=== PATIENT | male | born 1950 | race Caucasian/White ===

== ENCOUNTER 2017-03-29 14:58 | Inpatient (IN) | payer OTHER ==
[~2017-03-29] VITALS: Ht 180.3 cm; Wt 90.5 kg
[2017-03-29 14:59] VITALS: BP 153/97; PULSE 82; RESP 16; TEMP 98.4; O2SAT 97
[2017-03-29 15:27] VITALS: BP 142/94; PULSE 77; RESP 16; O2SAT 96
--- NOTE | 2017-03-29 15:48 | PD ---
HPI Chief Complaint: Abnormal Results Time Seen by Provider: 15:25 Travel History International Travel<30 days: No Contact w/Intl Traveler<30days: No Traveled to known affect area: No History of Present Illness HPI 66-year-old male presents emergency department at the request of his physician at [facility] for evaluation of an elevated d-dimer. Patient states that 3 days ago he began having right-sided chest pain increased with deep breaths and exertion. States that he was sitting at the time of the onset. Pain does not radiate. States the pain is moderate when present. States that he occasionally smokes cigars and he has a history of high blood pressure and high cholesterol. Family history significant for mother- history of coronary artery disease and father had a CVA. Patient says that he was diagnosed with pneumonia 6 weeks ago and had the flu 3 weeks ago. States this is fully resolved. Patient denies cardiac or pulmonary history. Denies history of blood clots in the lungs or legs. Patient does not take aspirin daily. PFSH Past Medical History High Cholesterol: Yes Hypertension: Yes Tetanus Vaccination: < 5 Years Influenza Vaccination: Yes Past Surgical History Abdominal Surgery: Yes (left inguinal hernia repair) Social History Alcohol Use: Yes (one drink/day) Tobacco Use: Yes (Cigar use) Substance Use: No Allergies-Medications (Allergen,Severity, Reaction): Coded Allergies: No Known Allergies (Unverified , 03/29/17) Review of Systems Except as stated in HPI: all other systems reviewed are Neg Physical Exam Narrative GENERAL: Well-developed well-nourished in no apparent distress, resting comfortably but SKIN: Focused skin assessment warm/dry. HEAD: Atraumatic. Normocephalic. EYES: Pupils equal and round. No scleral icterus. No injection or drainage. ENT: No nasal bleeding or discharge. Mucous membranes pink and moist. NECK: Trachea midline. No JVD. CARDIOVASCULAR: Regular rate and rhythm. No murmur appreciated. RESPIRATORY: No accessory muscle use. Clear to auscultation. Breath sounds equal bilaterally. GASTROINTESTINAL: Abdomen soft, non-tender, nondistended. No CVA tenderness MUSCULOSKELETAL: No obvious deformities. No clubbing. No cyanosis. No edema. Homans sign negative bilaterally NEUROLOGICAL: Awake and alert. No obvious cranial nerve deficits. Motor grossly within normal limits. Normal speech. PSYCHIATRIC: Appropriate mood and affect; insight and judgment normal. Data Data Last Documented VS Vital Signs Date Time Temp Pulse Resp B/P (MAP) Pulse Ox O2 Delivery O2 Flow Rate FiO2 03/29/17 15:27 77 16 142/94 (110) 96 Room Air 03/29/17 14:59 98.4 Orders Orders Troponin I (03/29/17 15:39) Ct Pulmonary Angiogram (03/29/17 ) Iohexol 350 Inj (Omnipaque 350 Inj) (03/29/17 16:50) Act Partial Throm Time (Ptt) (03/29/17 17:12) Prothrombin Time / Inr (Pt) (03/29/17 17:12) Heparin-D5w 25,000 U/250 Ml (Heparin-D5w (03/29/17 17:15) Act Partial Throm Time (Ptt) (03/29/17 17:14) Cbc No Diff, Includes Plts (03/29/17 17:14) Cbc No Diff, Includes Plts (04/01/17 06:00) Act Partial Throm Time (Ptt) (03/30/17 00:14) Occult Blood (Hemoccult) Stool (03/29/17 17:14) Electrocardiogram (03/29/17 ) Admit To Inpatient (03/29/17 17:44) Vital Signs (Adult) Q4H (03/29/17 17:44) Activity Bed Rest With Brp (03/29/17 17:44) Full Stack Software Engineer / Telemetry .CONTINUOUS (03/29/17 17:44) Diet Heart Healthy (03/29/17 Dinner) Basic Metabolic Panel (Bmp) (03/30/17 06:00) Complete Blood Count With Diff (03/30/17 06:00) Admit Order (Ed Use Only) (03/29/17 17:45) Labs Laboratory Tests Test 03/29/17 15:42 03/29/17 17:00 Troponin I LESS THAN 0.02 NG/ML White Blood Count 9.4 TH/MM3 Red Blood Count 4.62 MIL/MM3 Hemoglobin 14.5 GM/DL Hematocrit 41.0 % Mean Corpuscular Volume 88.7 FL Mean Corpuscular Hemoglobin 31.5 PG Mean Corpuscular Hemoglobin Concent 35.5 % Red Cell Distribution Width 13.9 % Platelet Count 370 TH/MM3 Mean Platelet Volume 8.9 FL MDM Medical Decision Making Medical Screen Exam Complete: Yes Emergency Medical Condition: Yes Differential Diagnosis Pneumonia, pulmonary embolism, pleural effusion Narrative Course 66-year-old male presents emergency department at the request of his physician at [facility] for evaluation of an elevated d-dimer. Patient states that 3 days ago he began having right-sided chest pain increased with deep breaths and exertion. States that he was sitting at the time of the onset. Pain does not radiate. States the pain is moderate when present. States that he occasionally smokes cigars and he has a history of high blood pressure and high cholesterol. Family history significant for mother- history of coronary artery disease and father had a CVA. Patient says that he was diagnosed with pneumonia 6 weeks ago and had the flu 3 weeks ago. States this is fully resolved. Patient denies cardiac or pulmonary history. Denies history of blood clots in the lungs or legs. No recent surgeries. Patient does not take aspirin daily. 1545 I talked with the patient about possible diagnoses. Patient is refusing EKG and other blood work at this time. I explained in depth the purpose of the EKG and he was concerned about 'paying for tests that were not necessary'. Advised the risk versus benefits of this. I was able to convince him to allow me to obtain a troponin and CT pulmonary angiogram. Advised that the delay in the EKG could result in other injury to his heart and even . Patient states understanding and prefers to wait. Says that if he has a "normal" CTA that he would agree to an EKG. Note that he did bring in lab work from the [facility] facility and this is listed in his chart. The chest x-ray states "Normal chest. There is an epicardial fat pad along the left heart border. There is of no significance. No pleural fluid identified on either right or left. No evidence for pneumonia. No abnormality on the right identified to explain right pleuritic chest pain." D-dimer 1.49. CBC unremarkable. BUN/creatinine 11/0.98, mild hyponatremia at 133. CT pulmonary angiogram, Troponin I ordered. Troponin negative. CT pulmonary angiogram demonstrates multifocal acute appearing PE bilaterally within the segmental pulmonary arteries. There is associated multifocal presumed atelectasis bilaterally related to the PE. Findings indicative of old granulomatous infection. After further discussion with the patient and the , they state that he has had a recent travel from [place] in January and a long car ride from [place] in February. This may be the etiology of his Pulmonary Emboli. Patient and agreed to further studies to include EKG and coags. EKG shows Sinus rhythm at 63BPM without STEMI changes. S1Q3T3 pattern present on EKG. Patient will be admitted for bilateral PE. Heparin drip initiated. Coags ordered. Patient remained hemodynamically stable in the emergency department today. Patient continued to have no complaints except for pain with deep inspiration. Diagnosis Primary Impression: Pulmonary embolism Qualified Codes: I26.99 - Other pulmonary embolism without acute cor pulmonale Admitting Information Admitting Physician Requests: Admit Condition: Stable Maria Eugenia Clemons Mar 29, 2017 15:48
[2017-03-29] MEDS ORDERED: IOHEXOL 350 MG/ML 10 ML VIAL (for RAD DIAG) IVCONTRAST ONE (16:50)
--- NOTE | 2017-03-29 17:02 | RADRPT ---
EXAM DATE/TIME: 03/29/2017 16:46 [facility] COMPARISON: No previous studies available for comparison. INDICATIONS : Right sided chest pain for three days. IV CONTRAST: 70 cc Omnipaque 350 (iohexol) IV RADIATION DOSE: 10.87 CTDIvol (mGy) MEDICAL HISTORY : Hypertension. SURGICAL HISTORY : Inguinal hernia repair. ENCOUNTER: Initial ACUITY: 3 days PAIN SCALE: 6/10 LOCATION: Right chest TECHNIQUE: Volumetric scanning of the chest was performed using a pulmonary embolism protocol MIP images were re constructed. Using automated exposure control and adjustment of the mA and/or kV according to patien t size, radiation dose was kept as low as reasonably achievable to obtain optimal diagnostic quality images. DICOM format image data is available electronically for review and comparison. Follow-up recommendations for detected pulmonary nodules are based at a minimum on nodule size and pa tient risk factors according to Fleischner Society Guidelines. FINDINGS: PULMONARY ARTERIES: There are abnormal filling defects/pulmonary thromboemboli within the right upper lobe, right middle lobe, right lower lobe, and left lower lobe segmental pulmonary arteries. LUNGS: There is multifocal area of atelectasis. No pneumothorax is present. There is a calcified granuloma i n the left lower lobe. PLEURAE: There is no pleural thickening or pleural effusion. MEDIASTINUM: Heart and great vessels demonstrate no acute finding. There is slight flattening of the interventricu lar septum. Coronary calcification is present. There is no lymphadenopathy. There are nonenlarged tomas cified left hilar lymph nodes. MUSCULOSKELETAL: No acute abnormality. There are degenerative changes of the thoracic spine. MISCELLANEOUS: The visualized upper abdominal organs demonstrate no acute abnormality. CONCLUSION: 1. Multifocal acute-appearing PE bilaterally within the segmental pulmonary arteries. There is associ ated multifocal presumed atelectasis bilaterally likely related to the PE. 2. Findings indicative of old granulomatous infection. Ze Loaiza MD on March 29, 2017 at 16:56 Board Certified Radiologist. This report was verified electronically.
--- NOTE | 2017-03-29 17:25 | PD ---
Data Data Last Documented VS Vital Signs Date Time Temp Pulse Resp B/P (MAP) Pulse Ox O2 Delivery O2 Flow Rate FiO2 03/29/17 15:27 77 16 142/94 (110) 96 Room Air 03/29/17 14:59 98.4 Orders Orders Troponin I (03/29/17 15:39) Ct Pulmonary Angiogram (03/29/17 ) Iohexol 350 Inj (Omnipaque 350 Inj) (03/29/17 16:50) Act Partial Throm Time (Ptt) (03/29/17 17:12) Prothrombin Time / Inr (Pt) (03/29/17 17:12) Heparin-D5w 25,000 U/250 Ml (Heparin-D5w (03/29/17 17:15) Act Partial Throm Time (Ptt) (03/29/17 17:14) Cbc No Diff, Includes Plts (03/29/17 17:14) Cbc No Diff, Includes Plts (04/01/17 06:00) Act Partial Throm Time (Ptt) (03/30/17 00:14) Occult Blood (Hemoccult) Stool (03/29/17 17:14) Labs Laboratory Tests Test 03/29/17 15:42 Troponin I LESS THAN 0.02 NG/ML [facility] Medical Record Reviewed: Yes Supervised Visit with BEHZAD: Yes Narrative Course CT PE: bilateral PEs Admission for IV heparin Pt hemodynamically stable at 524pm, speaking full sentences Unclear risk factors at time of admission Diagnosis Primary Impression: Pulmonary embolism Qualified Codes: I26.99 - Other pulmonary embolism without acute cor pulmonale Admitting Information Admitting Physician Requests: Admit Eugene Carrillo MD Mar 29, 2017 17:25
[2017-03-29 17:49] LABS: HEMOGLOBIN 14.5 GM/DL (13.0-17.0); MEAN CELL VOLUME 88.7 FL (80.0-100.0); MEAN CORPUSCULAR HEMOGLOBIN 31.5 PG (27.0-34.0); MEAN CORPUSCULAR HGB CONC 35.5 % (32.0-36.0); MEAN PLATELET VOLUME 8.9 FL (7.0-11.0); PLATELET COUNT 370 TH/MM3 (150-450); RED BLOOD COUNT 4.62 MIL/MM3 (4.50-5.90); RED CELL DISTRIBUTION WIDTH 13.9 % (11.6-17.2); WHITE BLOOD COUNT 9.4 TH/MM3 (4.0-11.0)
[2017-03-29 18:07] LABS: INTERNATIONAL NORMALIZED RATIO 0.9 RATIO; PROTHROMBIN TIME - PATIENT 9.5 SEC (9.8-11.6)
[2017-03-29] MEDS: HEPARIN-D5W 25,000 U/250 ML 250 ML IV PRN (18:31)
[2017-03-29 20:00] VITALS: BP 156/92; PULSE 58; RESP 16; TEMP 96.6; O2SAT 100
[2017-03-30] VITALS: BP 138/82; PULSE 58; RESP 16; TEMP 97.4; O2SAT 95
--- NOTE | 2017-03-30 00:39 | HHI.HP ---
[facility] Ad[facility] Diagnosis bilateral PE Diagnoses: Chief Complaint: Right chest pain Travel History International Travel<30 Days: No Contact w/Intl Traveler <30 Da: No Traveled to Known Affected Are: No History of Present Illness 66-year-old male with a history of hyperlipidemia and hypertension was sent to the ED for evaluation of an elevated d-dimer. Patient states for the last few days he's been having stabbing right-sided chest pain, 5/10, with no radiation worse with deep breaths. He was seen in the urgent care and lab work was completed and showed an elevated d-dimer they sent him to the hospital for a CT scan. He states he only really noticed the pain with exertion. He denies any fever or chills. He is originally from [place] and in January he was on a long plane ride, and in February he drove to [place] from [place]. He states 2 weeks ago he also did have the flu and he was laying in bed for about 3 days. He denies any pain or swelling in his lower extremities Review of Systems Except as stated in HPI: all other systems reviewed are Neg Past Family Social History Past Medical History Her pretension Hyperlipidemia Past Surgical History Right great toe surgery Inguinal hernia repair Reported Medications Allergies: Coded Allergies: No Known Allergies (Unverified , 03/29/17) Active Ordered Medications Current Medications Medications (Trade) Dose Ordered Sig/Francois Route Start Time Stop Time Status Last Admin Heparin Sodium/ Dextrose 250 ml @ 16 mls/hr TITRATE PRN IV 03/29/17 17:15 03/29/17 18:31 Family History Mom and dad: Hypertension Social History Tobacco use: A cigar occasionally Alcohol use: A drink with dinner Illicit drug use: Denies Physical Exam Vital Signs Vital Signs Date Time Temp Pulse Resp B/P (MAP) Pulse Ox O2 Delivery O2 Flow Rate FiO2 03/29/17 18:54 03/29/17 15:27 77 16 142/94 (110) 96 Room Air 03/29/17 15:19 18 99 Room Air 03/29/17 14:59 98.4 82 16 153/97 (115) 97 Physical Exam GENERAL: This is a well-nourished, well-developed patient, in no apparent distress. SKIN: No rashes, ecchymoses or lesions. Cool and dry. HEAD: Atraumatic. Normocephalic. EYES: Pupils equal round and reactive. ENT: Nose without bleeding, purulent drainage or septal hematoma. Airway patent. NECK: Trachea midline. No JVD or lymphadenopathy. Supple, nontender, no meningeal signs. CARDIOVASCULAR: Regular rate and rhythm without murmurs, gallops, or rubs. RESPIRATORY: Clear to auscultation. Breath sounds equal bilaterally. No wheezes , rales, or rhonchi. GASTROINTESTINAL: Abdomen soft, non-tender, nondistended. MUSCULOSKELETAL: Extremities without clubbing, cyanosis, or edema. No joint tenderness, effusion, or edema noted. No calf tenderness. NEUROLOGICAL: Awake and alert. Motor and sensory grossly within normal limits. Normal speech. Laboratory Laboratory Tests Test 03/29/17 15:42 03/29/17 17:00 Troponin I LESS THAN 0.02 White Blood Count 9.4 Red Blood Count 4.62 Hemoglobin 14.5 Hematocrit 41.0 Mean Corpuscular Volume 88.7 Mean Corpuscular Hemoglobin 31.5 Mean Corpuscular Hemoglobin Concent 35.5 Red Cell Distribution Width 13.9 Platelet Count 370 Mean Platelet Volume 8.9 Prothrombin Time 9.5 Prothromb Time International Ratio 0.9 Activated Partial Thromboplast Time 19.6 Result Diagram: 03/29/17 1700 Caprini VTE Risk Assessment Caprini VTE Risk Assessment: Mod/High Risk (score >= 2) Caprini Risk Assessment Model Point Value = 1 Point Value = 2 Point Value = 3 Point Value = 5 Age 41-60 Minor surgery BMI > 25 kg/m2 Swollen legs Varicose veins or History of unexplained or recurrent spontaneous Oral contraceptives or hormone replacement Sepsis (< 1 month) Serious lung disease, including pneumonia (< 1 month) Abnormal pulmonary function Acute myocardial infarction Congestive heart failure (< 1 month) History of inflammatory bowel disease Medical patient at bed rest Age 61-74 Arthroscopic surgery Major open surgery (> 45 min) Laparoscopic surgery (> 45 min) Malignancy Confined to bed (> 72 hours) Immobilizing plaster cast Central venous access Age >= 75 History of VTE Family history of VTE Factor V Leiden Prothrombin [id number] Lupus anticoagulant Anticardiolipin antibodies Elevated serum homocysteine Heparin-induced thrombocytopenia Other congenital or acquired thrombophilia Stroke (< 1 month) Elective arthroplasty Hip, pelvis, or leg fracture Acute spinal cord injury (< 1 month) Prophylaxis Regimen Total Risk Factor Score Risk Level Prophylaxis Regimen 0-1 Low Early ambulation 2 Moderate Order ONE of the following: *Sequential Compression Device (SCD) *Heparin 5000 units SQ BID 3-4 Higher Order ONE of the following medications: *Heparin 5000 units SQ TID *Enoxaparin/Lovenox 40 mg SQ daily (WT < 150 kg, CrCl > 30 mL/min) *Enoxaparin/Lovenox 30 mg SQ daily (WT < 150 kg, CrCl > 10-29 mL/min) *Enoxaparin/Lovenox 30 mg SQ BID (WT < 150 kg, CrCl > 30 mL/min) AND/OR *Sequential Compression Device (SCD) 5 or more Highest Order ONE of the following medications: *Heparin 5000 units SQ TID (Preferred with Epidurals) *Enoxaparin/Lovenox 40 mg SQ daily (WT < 150 kg, CrCl > 30 mL/min) *Enoxaparin/Lovenox 30 mg SQ daily (WT < 150 kg, CrCl > 10-29 mL/min) *Enoxaparin/Lovenox 30 mg SQ BID (WT < 150 kg, CrCl > 30 mL/min) AND *Sequential Compression Device (SCD) Assessment and Plan Problem List: (1) Pulmonary embolism ICD Code: I26.99 - Other pulmonary embolism without acute cor pulmonale Status: Acute (2) HTN (hypertension) ICD Code: I10 - Essential (primary) hypertension Assessment and Plan 66-year-old male with a history of hyperlipidemia and hypertension was sent to the ED for evaluation of an elevated d-dimer. Pulmonary embolism CTA reviewed and shows multifocal acute-appearing PE bilaterally within the segmental pulmonary arteries. There is associated multifocal presumed atelectasis bilaterally likely related to the PE. -Heparin IV -Monitor telemetry Hypertension, chronic -Resumed home medications, monitor vitals DVT prophylaxis: Heparin Discussed Condition With Patient Physician Certification 2 Midnight Certification Type: Admission for Inpatient Services Order for Inpatient Services The services are ordered in accordance with Medicare regulations or non- Medicare payer requirements, as applicable. In the case of services not specified as inpatient-only, they are appropriately provided as inpatient services in accordance with the 2-midnight benchmark. Estimated LOS (days): 2 days is the estimated time the patient will need to remain in the hospital, assuming treatment plan goals are met and no additional complications. Post-Hospital Plan: Home Problem Qualifiers (1) Pulmonary embolism: Qualified Codes: I26.99 - Other pulmonary embolism without acute cor pulmonale Annemarie Gan Mar 30, 2017 00:39
[2017-03-30] MEDS ORDERED: OMEGCAP PO (02:28)
[2017-03-30] MEDS ORDERED: LISI30TA4 PO (02:28)
[2017-03-30 04:00] VITALS: BP 138/87; PULSE 56; RESP 15; TEMP 96.3; O2SAT 95
[2017-03-30 08:00] VITALS: BP 136/91; PULSE 98; RESP 16; TEMP 97; O2SAT 96
[2017-03-30 08:45] LABS: AUTOMATED NEUTROPHIL # 4.7 TH/MM3 (1.8-7.7); BASOPHIL # 0.1 TH/MM3 (0-0.2); BASOPHIL % 0.7 % (0.0-2.0); EOSINOPHIL # 0.3 TH/MM3 (0-0.4); EOSINOPHIL % 3.5 % (0.0-4.0); HEMATOCRIT 40.5 % (39.0-51.0); HEMOGLOBIN 14.2 GM/DL (13.0-17.0); LYMPH % 25.2 % (9.0-44.0); MEAN CELL VOLUME 88.8 FL (80.0-100.0); MEAN CORPUSCULAR HEMOGLOBIN 31.1 PG (27.0-34.0); MEAN PLATELET VOLUME 8.1 FL (7.0-11.0); MONO % 10.1 % (0.0-8.0); MONOCYTE # 0.8 TH/MM3 (0-0.9); NEUT % 60.5 % (16.0-70.0); PLATELET COUNT 298 TH/MM3 (150-450); RED BLOOD COUNT 4.56 MIL/MM3 (4.50-5.90); RED CELL DISTRIBUTION WIDTH 13.3 % (11.6-17.2); WHITE BLOOD COUNT 7.8 TH/MM3 (4.0-11.0)
[2017-03-30 08:56] LABS: BICARBONATE 24.7 MEQ/L (21.0-32.0); CALCIUM 8.9 MG/DL (8.5-10.1); CREATININE 0.97 MG/DL (0.60-1.30)
[2017-03-30] MEDS: HEPARIN-D5W 25,000 U/250 ML 250 ML IV PRN (10:18)
[2017-03-30 12:00] VITALS: BP 134/85; PULSE 58; RESP 16; TEMP 97; O2SAT 95
--- NOTE | 2017-03-30 12:31 | HHI.PR ---
Subjective Remarks Patient seen and examined this morning. Temperature 97.0, pulse 98, respiratory rate 16, blood pressure 136/91, pulse ox 96 on 2 L nasal cannula. He reports having some chest discomfort mainly with activity and deep breaths. Denies any nausea vomiting. Reports only feeling mildly short of breath. After discussion he wishes to go on Xarelto for his long-term anticoagulation. Awaiting case management approval for this medication Objective Vitals Vital Signs Date Time Temp Pulse Resp B/P (MAP) Pulse Ox O2 Delivery O2 Flow Rate FiO2 03/30/17 08:00 97.0 98 16 136/91 (106) 96 03/30/17 04:00 96.3 56 15 138/87 (104) 95 03/30/17 00:00 97.4 58 16 138/82 (100) 95 03/29/17 20:00 96.6 58 16 156/92 (113) 100 03/29/17 18:54 03/29/17 15:27 77 16 142/94 (110) 96 Room Air 03/29/17 15:19 18 99 Room Air 03/29/17 14:59 98.4 82 16 153/97 (115) 97 I/O 03/29/17 03/29/17 03/29/17 03/30/17 03/30/17 03/30/17 07:00 15:00 23:00 07:00 15:00 23:00 Intake Total 300 ml Balance 300 ml Intake Oral 300 ml # Voids 1 1 Result Diagram: 03/30/17 0730 03/30/17 [address] Angiography 03/29/17 0000 Signed Impressions: Service Date/Time: Wednesday, March 29, 2017 16:46 - CONCLUSION: 1. Multifocal acute-appearing PE bilaterally within the segmental pulmonary arteries. There is associated multifocal presumed atelectasis bilaterally likely related to the PE. 2. Findings indicative of old granulomatous infection. Ze Loaiza MD Objective Remarks GEN: Well-developed, well-nourished patient. No acute distress. CV: Regular rate and rhythm without obvious murmurs LUNGS: Clear to auscultation bilaterally. Normal respiratory effort. No wheezes , rales, rhonchi. GI: Soft, nontender, nondistended. No palpable masses. Bowel sounds WNL. EXT: No edema. NEURO/PSYCH: Afocal. Awake, alert, and oriented x3. Appropriate insight and judgment. Medications and IVs Current Medications Medications (Trade) Dose Ordered Sig/Francois Route Start Time Stop Time Status Last Admin Heparin Sodium/ Dextrose 250 ml @ 16 mls/hr TITRATE PRN IV 03/29/17 17:15 03/30/17 10:18 A/P Problem List: (1) Pulmonary embolism ICD Code: I26.99 - Other pulmonary embolism without acute cor pulmonale Status: Acute (2) HTN (hypertension) ICD Code: I10 - Essential (primary) hypertension Assessment and Plan 66-year-old male with a history of hyperlipidemia and hypertension was sent to the ED for evaluation of an elevated d-dimer, found to have a pulmonary embolism on CT. Pulmonary embolism CTA reviewed and shows multifocal acute-appearing PE bilaterally within the segmental pulmonary arteries. There is associated multifocal presumed atelectasis bilaterally likely related to the PE. -Heparin IV -Discuss long-term anticoagulation with the patient. Current recommendations is that he be on 3 months of anticoagulation. This is a provoked due to traveling PE and it is his first 1 ever. -Discussed his options for long-term anticoagulation, discussed warfarin versus Xarelto patient prefers Xarelto. Discussed this option with case management they will work with his insurance to confirm if it will be covered. Start Xarelto tomorrow if covered -Walk test ordered for tomorrow -Monitor telemetry Hypertension, chronic -Resumed home medications, lisinopril, monitor vitals DVT prophylaxis: Heparin Discharge Planning Continuing treatment for PE and plans for long-term anticoagulant Problem Qualifiers (1) Pulmonary embolism: Qualified Codes: I26.99 - Other pulmonary embolism without acute cor pulmonale Fred Alfaro MD, R3 Mar 30, 2017 12:31
--- NOTE | 2017-03-30 14:47 | EKG ---
Date Performed: 03/29/2017 Time Performed: 17:46:13 PTAGE: 66 years EKG: Sinus rhythm WITH FIRST DEGREE AV BLOCK Late R-wave transition ABNORMAL ECG NO PREVIOUS TRACING DOCTOR: Carlin Luz Interpretating Date/Time 03/30/2017 14:45:17
[2017-03-30 20:00] VITALS: BP 134/83; PULSE 68; RESP 16; TEMP 98; O2SAT 95
[2017-03-31] VITALS: BP 131/87; PULSE 57; RESP 16; TEMP 97.4; O2SAT 94
[2017-03-31] MEDS: HEPARIN-D5W 25,000 U/250 ML 250 ML IV PRN (03:39)
[2017-03-31 03:50] LABS: BICARBONATE 26.3 MEQ/L (21.0-32.0); CALCIUM 8.8 MG/DL (8.5-10.1); CREATININE 0.94 MG/DL (0.60-1.30)
[2017-03-31] MEDS ORDERED: LISINOPRIL 10 MG TAB PO SCH (09:00)
[2017-03-31 12:00] VITALS: BP 142/88; PULSE 70; RESP 18; TEMP 97.2; O2SAT 95
[2017-03-31] MEDS ORDERED: RIVAROXABAN 15 MG TAB PO STA (13:52)
--- NOTE | 2017-03-31 14:20 | HHI.PR ---
Subjective Remarks 66-year-old male with a history of hyperlipidemia and hypertension was sent to the ED for evaluation of an elevated d-dimer. Patient states for the last few days he's been having stabbing right-sided chest pain, 5/10, with no radiation worse with deep breaths. He was seen in the urgent care and lab work was completed and showed an elevated d-dimer they sent him to the hospital for a CT scan. He states he only really noticed the pain with exertion. He denies any fever or chills. He is originally from [place] and in January he was on a long plane ride, and in February he drove to [place] from [place]. He states 2 weeks ago he also did have the flu and he was laying in bed for about 3 days. He denies any pain or swelling in his lower extremities 2-18 Patient seen and examined this morning. Temperature 97.0, pulse 98, respiratory rate 16, blood pressure 136/91, pulse ox 96 on 2 L nasal cannula. He reports having some chest discomfort mainly with activity and deep breaths. Denies any nausea vomiting. Reports only feeling mildly short of breath. After discussion he wishes to go on Xarelto for his long-term anticoagulation. Awaiting case management approval for this medication 2- passed walk test dc to home on xarelto 15mg po bid for 21 days then 20mg po daily from then on WANTS TO GO HOME DC TO HOME TODAY XARELTO CARD GIVEN Objective Vitals Vital Signs Date Time Temp Pulse Resp B/P (MAP) Pulse Ox O2 Delivery O2 Flow Rate FiO2 03/31/17 00:00 97.4 57 16 131/87 (102) 94 03/30/17 20:00 98.0 68 16 134/83 (100) 95 I/O 03/30/17 03/30/17 03/30/17 03/31/17 03/31/17 03/31/17 07:00 15:00 23:00 07:00 15:00 23:00 Intake Total 600 ml 1200 ml 300 ml Balance 600 ml 1200 ml 300 ml Intake Oral 600 ml 1200 ml 300 ml # Voids 1 3 2 1 Result Diagram: 03/30/17 0730 03/31/17 0308 Other Results Laboratory Tests Test 03/29/17 15:42 03/29/17 17:00 03/30/17 01:35 03/30/17 07:30 Troponin I LESS THAN 0.02 NG/ML White Blood Count 9.4 TH/MM3 7.8 TH/MM3 Red Blood Count 4.62 MIL/MM3 4.56 MIL/MM3 Hemoglobin 14.5 GM/DL 14.2 GM/DL Hematocrit 41.0 % 40.5 % Mean Corpuscular Volume 88.7 FL 88.8 FL Mean Corpuscular Hemoglobin 31.5 PG 31.1 PG Mean Corpuscular Hemoglobin Concent 35.5 % 35.0 % Red Cell Distribution Width 13.9 % 13.3 % Platelet Count 370 TH/MM3 298 TH/MM3 Mean Platelet Volume 8.9 FL 8.1 FL Prothrombin Time 9.5 SEC Prothromb Time International Ratio 0.9 RATIO Activated Partial Thromboplast Time 19.6 SEC 60.6 SEC 75.6 SEC Neutrophils (%) (Auto) 60.5 % Lymphocytes (%) (Auto) 25.2 % Monocytes (%) (Auto) 10.1 % Eosinophils (%) (Auto) 3.5 % Basophils (%) (Auto) 0.7 % Neutrophils # (Auto) 4.7 TH/MM3 Lymphocytes # (Auto) 2.0 TH/MM3 Monocytes # (Auto) 0.8 TH/MM3 Eosinophils # (Auto) 0.3 TH/MM3 Basophils # (Auto) 0.1 TH/MM3 CBC Comment DIFF FINAL Differential Comment Blood Urea Nitrogen 12 MG/DL Creatinine 0.97 MG/DL Random Glucose 84 MG/DL Calcium Level 8.9 MG/DL Sodium Level 142 MEQ/L Potassium Level 3.8 MEQ/L Chloride Level 109 MEQ/L Carbon Dioxide Level 24.7 MEQ/L Anion Gap 8 MEQ/L Estimat Glomerular Filtration Rate 78 ML/MIN Test 03/30/17 15:12 03/30/17 21:25 03/31/17 03:08 Activated Partial Thromboplast Time 61.3 SEC 55.6 SEC 59.8 SEC Blood Urea Nitrogen 13 MG/DL Creatinine 0.94 MG/DL Random Glucose 89 MG/DL Calcium Level 8.8 MG/DL Sodium Level 142 MEQ/L Potassium Level 4.0 MEQ/L Chloride Level 107 MEQ/L Carbon Dioxide Level 26.3 MEQ/L Anion Gap 9 MEQ/L Estimat Glomerular Filtration Rate 81 ML/MIN Imaging Current Medications Iohexol (Omnipaque 350 Inj) 70 ml STK-MED ONCE IVCONTRAST Last administered on 03/29/17 16:50; Start 03/29/17 at 16:50; Stop 03/29/17 at 16:52; Status DC Heparin Sodium/ Dextrose 250 ml @ 16 mls/hr TITRATE PRN IV Coagulation Management Last administered on 03/31/17 03:39; Start 03/29/17 at 17:15 Lisinopril (Prinivil) 30 mg DAILY PO Last administered on 03/31/17 07:56; Start 03/31/17 at 09:00 Objective Remarks GENERAL: AWAKE AND ALERT ORIENTED X3 TALKATIVE AND COOPERATIVE SKIN: Warm and dry. HEAD: Atraumatic. Normocephalic. EYES: Pupils equal and round. No scleral icterus. No injection or drainage. EOMI ENT: No nasal bleeding or discharge. Mucous membranes pink and moist. TONGUE MIDLINE NECK: Trachea midline. No JVD. SUPPLE CARDIOVASCULAR: Regular rate and rhythm. S1, S2- NO S3 OR S4 RESPIRATORY: No accessory muscle use. Clear to auscultation. Breath sounds equal bilaterally. GASTROINTESTINAL: Abdomen soft, non-tender, nondistended. Hepatic and splenic margins not palpable. MUSCULOSKELETAL: Extremities without clubbing, cyanosis, or edema. No obvious deformities. NEUROLOGICAL: Awake and alert. No obvious cranial nerve deficits. Motor grossly within normal limits. Five out of 5 muscle strength in the arms and legs. Normal speech. PSYCHIATRIC: Appropriate mood and affect; insight and judgment normal. Medications and IVs Current Medications Iohexol (Omnipaque 350 Inj) 70 ml STK-MED ONCE IVCONTRAST Last administered on 03/29/17 16:50; Start 03/29/17 at 16:50; Stop 03/29/17 at 16:52; Status DC Heparin Sodium/ Dextrose 250 ml @ 16 mls/hr TITRATE PRN IV Coagulation Management Last administered on 03/31/17 03:39; Start 03/29/17 at 17:15 Lisinopril (Prinivil) 30 mg DAILY PO Last administered on 03/31/17 07:56; Start 03/31/17 at 09:00 A/P Problem List: (1) Pulmonary embolism ICD Code: I26.99 - Other pulmonary embolism without acute cor pulmonale Status: Acute (2) HTN (hypertension) ICD Code: I10 - Essential (primary) hypertension Assessment and Plan 66-year-old male with a history of hyperlipidemia and hypertension was sent to the ED for evaluation of an elevated d-dimer, found to have a pulmonary embolism on CT. Pulmonary embolism CTA reviewed and shows multifocal acute-appearing PE bilaterally within the segmental pulmonary arteries. There is associated multifocal presumed atelectasis bilaterally likely related to the PE. -Heparin IV-DC AFTER XARELTO 15MG STARTED -Discuss long-term anticoagulation with the patient. Current recommendations is that he be on 3 months of anticoagulation. This is a provoked due to traveling PE and it is his first 1 ever. -Discussed his options for long-term anticoagulation, discussed warfarin versus Xarelto patient prefers Xarelto. Discussed this option with case management they will work with his insurance to confirm if it will be covered. Start Xarelto tomorrow if covered -Walk test WAS NEGATIVE- NO NEED FOR OXYGEN Hypertension, chronic -Resumed home medications, lisinopril, monitor vitals DVT prophylaxis wants to go with XARELTO Discharge Planning DC TO HOME Problem Qualifiers (1) Pulmonary embolism: Qualified Codes: I26.99 - Other pulmonary embolism without acute cor pulmonale Austin Larsen DO Mar 31, 2017 14:20
[2017-03-31] MEDS ORDERED: XARE20TA PO (14:25)
[2017-03-31] MEDS ORDERED: XARE15TA PO (14:25)
--- NOTE | 2017-03-31 14:35 | HHI.DS ---
Discharge Summary Admission Date Mar 29, 2017 at 17:50 Discharge Date: Mar 31, 2017 Admitting Diagnosis bilateral PE (1) Pulmonary embolism ICD Code: I26.99 - Other pulmonary embolism without acute cor pulmonale Diagnosis: Principal Status: Acute (2) HTN (hypertension) ICD Code: I10 - Essential (primary) hypertension Diagnosis: Secondary Procedures NONE Brief History - From Admission 66-year-old male with a history of hyperlipidemia and hypertension was sent to the ED for evaluation of an elevated d-dimer. Patient states for the last few days he's been having stabbing right-sided chest pain, 5/10, with no radiation worse with deep breaths. He was seen in the urgent care and lab work was completed and showed an elevated d-dimer they sent him to the hospital for a CT scan. He states he only really noticed the pain with exertion. He denies any fever or chills. He is originally from [place] and in January he was on a long plane ride, and in February he drove to [place] from [place]. He states 2 weeks ago he also did have the flu and he was laying in bed for about 3 days. He denies any pain or swelling in his lower extremities CBC/BMP: 03/30/17 0730 03/31/17 0308 Significant Findings Laboratory Tests Test 03/29/17 15:42 03/29/17 17:00 03/30/17 01:35 03/30/17 07:30 Troponin I LESS THAN 0.02 NG/ML Prothrombin Time 9.5 SEC (9.8-11.6) Activated Partial Thromboplast Time 19.6 SEC (24.3-30.1) 60.6 SEC (24.3-30.1) 75.6 SEC (24.3-30.1) Monocytes (%) (Auto) 10.1 % (0.0-8.0) Chloride Level 109 MEQ/L (98-107) Estimat Glomerular Filtration Rate 78 ML/MIN (>89) Test 03/30/17 15:12 03/30/17 21:25 03/31/17 03:08 Activated Partial Thromboplast Time 61.3 SEC (24.3-30.1) 55.6 SEC (24.3-30.1) 59.8 SEC (24.3-30.1) Estimat Glomerular Filtration Rate 81 ML/MIN (>89) Imaging Last Impressions CT Angiography 03/29/17 0000 Signed Impressions: Service Date/Time: Wednesday, March 29, 2017 16:46 - CONCLUSION: 1. Multifocal acute-appearing PE bilaterally within the segmental pulmonary arteries. There is associated multifocal presumed atelectasis bilaterally likely related to the PE. 2. Findings indicative of old granulomatous infection. Ze Loaiza MD PE at Discharge GENERAL: AWAKE AND ALERT ORIENTED X3 TALKATIVE AND COOPERATIVE SKIN: Warm and dry. HEAD: Atraumatic. Normocephalic. EYES: Pupils equal and round. No scleral icterus. No injection or drainage. EOMI ENT: No nasal bleeding or discharge. Mucous membranes pink and moist. TONGUE MIDLINE NECK: Trachea midline. No JVD. SUPPLE CARDIOVASCULAR: Regular rate and rhythm. S1, S2- NO S3 OR S4 RESPIRATORY: No accessory muscle use. Clear to auscultation. Breath sounds equal bilaterally. GASTROINTESTINAL: Abdomen soft, non-tender, nondistended. Hepatic and splenic margins not palpable. MUSCULOSKELETAL: Extremities without clubbing, cyanosis, or edema. No obvious deformities. NEUROLOGICAL: Awake and alert. No obvious cranial nerve deficits. Motor grossly within normal limits. Five out of 5 muscle strength in the arms and legs. Normal speech. PSYCHIATRIC: Appropriate mood and affect; insight and judgment normal. Hospital Course 66-year-old male with a history of hyperlipidemia and hypertension was sent to the ED for evaluation of an elevated d-dimer. Patient states for the last few days he's been having stabbing right-sided chest pain, 5/10, with no radiation worse with deep breaths. He was seen in the urgent care and lab work was completed and showed an elevated d-dimer they sent him to the hospital for a CT scan. He states he only really noticed the pain with exertion. He denies any fever or chills. He is originally from [place] and in January he was on a long plane ride, and in February he drove to [place] from [place]. He states 2 weeks ago he also did have the flu and he was laying in bed for about 3 days. He denies any pain or swelling in his lower extremities 2-18 Patient seen and examined this morning. Temperature 97.0, pulse 98, respiratory rate 16, blood pressure 136/91, pulse ox 96 on 2 L nasal cannula. He reports having some chest discomfort mainly with activity and deep breaths. Denies any nausea vomiting. Reports only feeling mildly short of breath. After discussion he wishes to go on Xarelto for his long-term anticoagulation. Awaiting case management approval for this medication - passed walk test dc to home on xarelto 15mg po bid for 21 days then 20mg po daily from then on WANTS TO GO HOME DC TO HOME TODAY XARELTO CARD GIVEN 66-year-old male with a history of hyperlipidemia and hypertension was sent to the ED for evaluation of an elevated d-dimer, found to have a pulmonary embolism on CT. Pulmonary embolism CTA reviewed and shows multifocal acute-appearing PE bilaterally within the segmental pulmonary arteries. There is associated multifocal presumed atelectasis bilaterally likely related to the PE. -Heparin IV -Discuss long-term anticoagulation with the patient. Current recommendations is that he be on 3 months of anticoagulation. This is a provoked due to traveling PE and it is his first 1 ever. -Discussed his options for long-term anticoagulation, discussed warfarin versus Xarelto patient prefers Xarelto. Discussed this option with case management they will work with his insurance to confirm if it will be covered. Start Xarelto tomorrow if covered -Walk test ordered for tomorrow -Monitor telemetry Hypertension, chronic -Resumed home medications, lisinopril, monitor vitals DVT prophylaxis: Heparin Pt Condition on Discharge: Good Discharge Disposition: Discharge Home Discharge Time: <= 30 minutes Discharge Instructions DIET: Follow Instructions for: Heart Healthy Diet Speech Therapy-Diet Recommends: Regular Activities you can perform: Regular-No Restrictions Activities to Avoid: Contact Sports, Shaving (WITH BLADES - MAY USE ELECTRIC RAZOR) Follow up Referrals: PCP Follow-up - 10 Days New Medications: Rivaroxaban (Xarelto) 15 Mg Tab 15 MG PO Q12HR for Blood Clot Prevention for 21 Days, #42 TAB 0 Refills THEN ON DAY 22 START XARELTO 20MG PO DAILY FROM THERE ON DISP 11 20MG TABS ALSO Rivaroxaban (Xarelto) 20 Mg Tab 20 MG PO DAILY for Blood Clot Prevention for 10 Days, #10 TAB 0 Refills Continued Medications: Fish Oil-Cholecalciferol ([place]-3 Fish Oil/Vitamin) 1,000-1,000 Mg Cap 1 CAP PO DAILY for Nutritional Supplement, CAP 0 Refills Lisinopril (Lisinopril) 30 Mg Tab 30 MG PO DAILY for Blood Pressure Management, #30 TAB 0 Refills Austin Larsen DO Mar 31, 2017 14:35
[2017-03-31] MEDS ORDERED: RIVAROXABAN 15 MG TAB PO SCH (21:00)
== END 2017-03-31 17:43 | disposition home or self-care (01) | DRG 176 ==
LOC: NEPC 14:58 → NEDA 17:50 → N06A 19:00
PROVIDERS: ADMIT Hospitalist; ATTEND Hospitalist
DX: I26.99 Other pulmonary embolism without acute cor pulmonale (principal); E87.1 Hypo-osmolality and hyponatremia; I10 Essential (primary) hypertension; J98.11 Atelectasis; E78.5 Hyperlipidemia, unspecified; Z82.3 Family history of stroke; Z72.0 Tobacco use; Z82.49 Family history of ischemic heart disease and other diseases of the circulatory system
CPT/HCPCS: 71275; 80048; 82272; 84484; 85025; 85027; 85610; 85730; 93005; 94618; J1644; Q9967

== ENCOUNTER → 2017-03-29 | Outpatient (CLI) | payer OTHER ==
[~2017-03-29] MED LIST: LISI30TA4 PO; OMEGCAP PO; XARE15TA PO; XARE20TA PO
[2017-03-29 11:45] LABS: HEMATOCRIT 40.2 % (39.0-51.0); HEMOGLOBIN 14.8 GM/DL (13.0-17.0); MEAN CELL VOLUME 88.5 FL (80.0-100.0); MEAN CORPUSCULAR HEMOGLOBIN 32.6 PG (27.0-34.0); MEAN PLATELET VOLUME 7.3 FL (7.0-11.0); PLATELET COUNT 302 TH/MM3 (150-450); RED BLOOD COUNT 4.55 MIL/MM3 (4.50-5.90); RED CELL DISTRIBUTION WIDTH 13.4 % (11.6-17.2); WHITE BLOOD COUNT 9.4 TH/MM3 (4.0-11.0)
[2017-03-29 11:46] LABS: MEAN CORPUSCULAR HGB CONC 36.9 % (32.0-36.0)
[2017-03-29 12:11] LABS: ALBUMIN 3.9 GM/DL (3.4-5.0); ALT (GPT) 24 U/L (12-78); AST (GOT) 20 U/L (15-37); BICARBONATE 27.8 MEQ/L (21.0-32.0); BLOOD UREA NITROGEN 11 MG/DL (7-18); CALCIUM 9.1 MG/DL (8.5-10.1); CHLORIDE 103 MEQ/L (98-107); CREATININE 0.98 MG/DL (0.60-1.30); GLOMERULAR FILTRATION RATE 77 ML/MIN (>89); GLUCOSE,FASTING 92 MG/DL (74-99); SODIUM (NA) 133 MEQ/L (136-145)
[2017-03-29 12:14] LABS: ALKALINE PHOSPHATASE 77 U/L (45-117); TOTAL BILIRUBIN ADULT 0.5 MG/DL (0.2-1.0); TOTAL PROTEIN 7.5 GM/DL (6.4-8.2)
--- NOTE | 2017-03-29 23:07 | HHI.HP ---
[facility] Non-Staff Admission Diagnosis Diagnoses: Past Family Social History Allergies: Coded Allergies: No Known Allergies (Unverified , 03/29/17) Physical Exam Physical Exam GENERAL: This is a well-nourished, well-developed patient, in no apparent distress. SKIN: No rashes, ecchymoses or lesions. Cool and dry. HEAD: Atraumatic. Normocephalic. No temporal or scalp tenderness. EYES: Pupils equal round and reactive. Extraocular motions intact. No scleral icterus. No injection or drainage. ENT: Nose without bleeding, purulent drainage or septal hematoma. Throat without erythema, tonsillar hypertrophy or exudate. Uvula midline. Airway patent. NECK: Trachea midline. No JVD or lymphadenopathy. Supple, nontender, no meningeal signs. CARDIOVASCULAR: Regular rate and rhythm without murmurs, gallops, or rubs. RESPIRATORY: Clear to auscultation. Breath sounds equal bilaterally. No wheezes , rales, or rhonchi. GASTROINTESTINAL: Abdomen soft, non-tender, nondistended. No hepato-splenomegaly , or palpable masses. No guarding. MUSCULOSKELETAL: Extremities without clubbing, cyanosis, or edema. No joint tenderness, effusion, or edema noted. No calf tenderness. Negative Homans sign bilaterally. NEUROLOGICAL: Awake and alert. Cranial nerves II through XII intact. Motor and sensory grossly within normal limits. Five out of 5 muscle strength in all muscle groups. Normal speech. Laboratory Laboratory Tests Test 03/29/17 11:39 White Blood Count 9.4 Red Blood Count 4.55 Hemoglobin 14.8 Hematocrit 40.2 Mean Corpuscular Volume 88.5 Mean Corpuscular Hemoglobin 32.6 Mean Corpuscular Hemoglobin Concent 36.9 Red Cell Distribution Width 13.4 Platelet Count 302 Mean Platelet Volume 7.3 D-Dimer Quantitative (PE/DVT) 1.49 Sodium Level 133 Potassium Level 4.5 Chloride Level 103 Carbon Dioxide Level 27.8 Anion Gap 2 Blood Urea Nitrogen 11 Creatinine 0.98 Estimat Glomerular Filtration Rate 77 Fasting Glucose 92 Calcium Level 9.1 Total Bilirubin 0.5 Aspartate Amino Transf (AST/SGOT) 20 Alanine Aminotransferase (ALT/SGPT) 24 Alkaline Phosphatase 77 B-Type Natriuretic Peptide 25 Total Protein 7.5 Albumin 3.9 Result Diagram: 03/29/179 03/29/179 Caprini VTE Risk Assessment Caprini Risk Assessment Model Point Value = 1 Point Value = 2 Point Value = 3 Point Value = 5 Age 41-60 Minor surgery BMI > 25 kg/m2 Swollen legs Varicose veins or History of unexplained or recurrent spontaneous Oral contraceptives or hormone replacement Sepsis (< 1 month) Serious lung disease, including pneumonia (< 1 month) Abnormal pulmonary function Acute myocardial infarction Congestive heart failure (< 1 month) History of inflammatory bowel disease Medical patient at bed rest Age 61-74 Arthroscopic surgery Major open surgery (> 45 min) Laparoscopic surgery (> 45 min) Malignancy Confined to bed (> 72 hours) Immobilizing plaster cast Central venous access Age >= 75 History of VTE Family history of VTE Factor V Leiden Prothrombin [id number] Lupus anticoagulant Anticardiolipin antibodies Elevated serum homocysteine Heparin-induced thrombocytopenia Other congenital or acquired thrombophilia Stroke (< 1 month) Elective arthroplasty Hip, pelvis, or leg fracture Acute spinal cord injury (< 1 month) Prophylaxis Regimen Total Risk Factor Score Risk Level Prophylaxis Regimen 0-1 Low Early ambulation 2 Moderate Order ONE of the following: *Sequential Compression Device (SCD) *Heparin 5000 units SQ BID 3-4 Higher Order ONE of the following medications: *Heparin 5000 units SQ TID *Enoxaparin/Lovenox 40 mg SQ daily (WT < 150 kg, CrCl > 30 mL/min) *Enoxaparin/Lovenox 30 mg SQ daily (WT < 150 kg, CrCl > 10-29 mL/min) *Enoxaparin/Lovenox 30 mg SQ BID (WT < 150 kg, CrCl > 30 mL/min) AND/OR *Sequential Compression Device (SCD) 5 or more Highest Order ONE of the following medications: *Heparin 5000 units SQ TID (Preferred with Epidurals) *Enoxaparin/Lovenox 40 mg SQ daily (WT < 150 kg, CrCl > 30 mL/min) *Enoxaparin/Lovenox 30 mg SQ daily (WT < 150 kg, CrCl > 10-29 mL/min) *Enoxaparin/Lovenox 30 mg SQ BID (WT < 150 kg, CrCl > 30 mL/min) AND *Sequential Compression Device (SCD) Physician Certification 2 Midnight Certification Type: Admission for Inpatient Services Order for Inpatient Services The services are ordered in accordance with Medicare regulations or non- Medicare payer requirements, as applicable. In the case of services not specified as inpatient-only, they are appropriately provided as inpatient services in accordance with the 2-midnight benchmark. Estimated LOS (days): 2 days is the estimated time the patient will need to remain in the hospital, assuming treatment plan goals are met and no additional complications. Post-Hospital Plan: [place] Annemarie Gan Mar 29, 2017 23:07
== END ==
LOC: HLAB 11:20
DX: R07.81 Pleurodynia (principal); R06.02 Shortness of breath
CPT/HCPCS: 36415; 80053; 83880; 85027; 85379